=== PATIENT | male | born 1960 | race Caucasian/White ===

== ENCOUNTER 2022-03-04 10:01 | Inpatient (IN) | payer OTHER ==
[~2022-03-04] VITALS: Ht 185.4 cm; Wt 111.0 kg
[2022-03-04 11:39] LABS: BASOPHIL 0.7 % (0-2); EOSINOPHIL 1.5 % (0-5); HGB 14.7 g/dl (13.2-18.0); LYMPHOCYTE 15.2 % (15-48); MCH 30.2 pg (25.0-31.0); MCHC 33.4 g/dL (32.0-36.0); MCV 90.5 fL (78.0-100.0); NEUTROPHIL 67.9 % (41-80); NRBC 0; PLT 361 K/uL (150-400); RBC 4.86 M/uL (4.70-6.00); RDW 12.8 % (11.5-14.0); WBC 13.2 K/uL (4.0-10.5)
[2022-03-04 11:43] LABS: INR 1.26 (0.9-1.2); PROTHROMBIN TIME 15.1 SECONDS (11.8-13.4); PTT 36.7 SECONDS (24.4-34.7)
[2022-03-04 11:44] LABS: D-DIMER 0.54 ug/mLFEU (0.00-0.41)
[2022-03-04 11:51] LABS: ALBUMIN 3.1 g/dL (3.4-5.0); BILIRUBIN - TOTAL 1.5 mg/dL (0.2-1.0); BUN/CREAT RATIO (CALC) 14.9 RATIO; CREATININE 0.94 mg/dL (0.67-1.17); GLOBULIN (CALCULATION) 4.4 g/dL; MAGNESIUM 1.9 mg/dL (1.8-2.4); TOTAL PROTEIN 7.5 g/dL (6.4-8.2)
[2022-03-04 11:54] LABS: BILIRUBIN 1+ mg/dL (NEGATIVE); BLOOD TRACE-INTACT Ery/uL (NEGATIVE); CLARITY CLEAR (CLEAR); COLOR YELLOW (YELLOW); GLUCOSE (U) NORMAL (NORMAL); LEUKOCYTES NEGATIVE Leu/uL (NEGATIVE); NITRITE NEGATIVE (NEGATIVE); PROTEIN NEGATIVE (NEGATIVE); SPECIFIC GRAVITY 1.025 (1.001-1.030)
[2022-03-04 12:08] LABS: BACTERIA TRACE; URINARY RBC RARE; URINARY WBC RARE
[2022-03-04 17:09] LABS: CHOLESTEROL 156 mg/dL (<200); HDL 41 mg/dL (40-60); LACTIC ACID 1.5 mmol/L (0.4-1.9); LDL - DIRECT 94 mg/dL (<100); TRIGLYCERIDES 73 mg/dL (<150)
[2022-03-05 06:10] LABS: BASOPHIL 0.8 % (0-2); EOSINOPHIL 3.3 % (0-5); HCT 43.8 % (42.0-52.0); HGB 14.5 g/dl (13.2-18.0); LYMPHOCYTE 15.6 % (15-48); MCH 30.2 pg (25.0-31.0); MCHC 33.1 g/dL (32.0-36.0); MCV 91.3 fL (78.0-100.0); MONOCYTE 13.7 % (0-12); NRBC 0; PLT 358 K/uL (150-400); RDW 12.9 % (11.5-14.0); WBC 14.3 K/uL (4.0-10.5)
[2022-03-05 06:38] LABS: ALBUMIN 2.9 g/dL (3.4-5.0); BILIRUBIN - DIRECT 0.3 mg/dL (0.00-0.20); BILIRUBIN - TOTAL 1.2 mg/dL (0.2-1.0); BUN/CREAT RATIO (CALC) 16.7 RATIO; CREATININE 1.02 mg/dL (0.67-1.17); GLOBULIN (CALCULATION) 4.2 g/dL; POTASSIUM 4.5 mmol/L (3.5-5.1); TOTAL PROTEIN 7.1 g/dL (6.4-8.2)
[2022-03-05 09:01] LABS: FT4 (FREE T4) 1.3 ng/dL (0.76-1.46)
[2022-03-06 05:48] LABS: BASOPHIL 0.8 % (0-2); EOSINOPHIL 3.3 % (0-5); HCT 41.4 % (42.0-52.0); HGB 13.7 g/dl (13.2-18.0); LYMPHOCYTE 19.4 % (15-48); MCHC 33.1 g/dL (32.0-36.0); MCV 90.8 fL (78.0-100.0); MONOCYTE 13.8 % (0-12); MPV 8.9 fL (6.0-9.5); NEUTROPHIL 61.7 % (41-80); NRBC 0; PLT 367 K/uL (150-400); RBC 4.56 M/uL (4.70-6.00); RDW 12.9 % (11.5-14.0); WBC 12.8 K/uL (4.0-10.5)
[2022-03-06 06:14] LABS: ALBUMIN 2.7 g/dL (3.4-5.0); BILIRUBIN - DIRECT 0.3 mg/dL (0.00-0.20); GLOBULIN (CALCULATION) 4.2 g/dL; POTASSIUM 4.1 mmol/L (3.5-5.1); TOTAL PROTEIN 6.9 g/dL (6.4-8.2)
[2022-03-06 17:00] LABS: BILIRUBIN 1+ mg/dL (NEGATIVE); BLOOD 1+ Ery/uL (NEGATIVE); COLOR YELLOW (YELLOW); GLUCOSE (U) TRACE mg/dL (NORMAL); LEUKOCYTES NEGATIVE Leu/uL (NEGATIVE); NITRITE POSITIVE (NEGATIVE); PROTEIN TRACE (LOW) mg/dL (NEGATIVE); SPECIFIC GRAVITY >=1.030 (1.001-1.030)
[2022-03-06 17:33] LABS: CLARITY CLOUDY (CLEAR)
[2022-03-06 17:34] LABS: AMORPHOUS URATES CRYSTALS LARGE; URINARY RBC RARE
[2022-03-07 03:21] LABS: BASOPHIL 0.6 % (0-2); EOSINOPHIL 3.5 % (0-5); HCT 41.5 % (42.0-52.0); HGB 13.9 g/dl (13.2-18.0); LYMPHOCYTE 15.7 % (15-48); MCH 30.2 pg (25.0-31.0); MCHC 33.5 g/dL (32.0-36.0); MONOCYTE 13.7 % (0-12); MPV 8.8 fL (6.0-9.5); NEUTROPHIL 65.8 % (41-80); NRBC 0; PLT 360 K/uL (150-400); RBC 4.61 M/uL (4.70-6.00); RDW 12.8 % (11.5-14.0); WBC 13.6 K/uL (4.0-10.5)
[2022-03-07 03:31] LABS: INR 1.5 (0.9-1.2); PROTHROMBIN TIME 17.4 SECONDS (11.8-13.4)
[2022-03-07 03:40] LABS: BUN/CREAT RATIO (CALC) 18.6 RATIO; CREATININE 0.86 mg/dL (0.67-1.17); POTASSIUM 4.5 mmol/L (3.5-5.1)
[2022-03-07] MEDS ORDERED: AUGMENTIN 500-1 EACH PO (08:44)
[2022-03-07] MEDS ORDERED: NORCO 5-325 TA1 EACH PO (08:44)
[2022-03-07] MEDS ORDERED: AMIODARONE HCL200 MG PO (08:44)
[2022-03-07] MEDS ORDERED: NAPROSYN250 MG PO (08:44)
[2022-03-07] MEDS ORDERED: METRONIDAZOLE500 MG PO (08:44)
--- NOTE | 2022-03-07 09:55 | NUR ---
03/07 Mr. Keen lives alone. He is independent and continues to work. He will be discharging to the home of his girlfriend, Jaquelin Christensen, [address] [place] [address] Jorge Merino Moody. - A referral was made to [facility] per pt request.
[2022-03-07 12:30] LABS: ALBUMIN 2.4 g/dL (3.4-5.0); BILIRUBIN - DIRECT 0.2 mg/dL (0.00-0.20); BILIRUBIN - TOTAL 0.6 mg/dL (0.2-1.0); GLOBULIN (CALCULATION) 4.2 g/dL; TOTAL PROTEIN 6.6 g/dL (6.4-8.2)
[2022-03-07 15:21] LABS: RBC (FLUID) 207000 RBC/uL; WBC (FLUID) 3854 WBC/uL
[2022-03-07 15:26] LABS: CLARITY (FLUID) CLOUDY; COLOR (FLUID) RED
[2022-03-08 08:39] LABS: BASOPHIL 0.7 % (0-2); EOSINOPHIL 5.2 % (0-5); HCT 44.3 % (42.0-52.0); HGB 14.5 g/dl (13.2-18.0); LYMPHOCYTE 12.9 % (15-48); MCHC 32.7 g/dL (32.0-36.0); MCV 91.7 fL (78.0-100.0); MONOCYTE 12.1 % (0-12); MPV 8.9 fL (6.0-9.5); NEUTROPHIL 68.4 % (41-80); NRBC 0; PLT 387 K/uL (150-400); RBC 4.83 M/uL (4.70-6.00); RDW 12.8 % (11.5-14.0); WBC 13.2 K/uL (4.0-10.5)
[2022-03-08 08:58] LABS: BUN/CREAT RATIO (CALC) 20.5 RATIO; CREATININE 0.88 mg/dL (0.67-1.17); POTASSIUM 3.9 mmol/L (3.5-5.1)
--- NOTE | 2022-03-08 15:37 | NUR ---
03/08/22 A referral was made to [facility], for PCP.
--- NOTE | 2022-03-10 13:46 | NUR ---
1325RETURNED FROM SURGERY VIA BED. PLEUR X KIT WITH PATIENT. REATTACHED TO MONITORS. NO DRAINAGE ON DRESSINGS.
--- NOTE | 2022-03-10 14:23 | NUR ---
03/10/22 A referral was received for nursing through . [facility] and [facility] declined to accept patient. [facility] agreed to accept. However, they are out of network. Pt would be responsible for the first $4000. and then the plan would pay at 70%. This information was relayed to Mr. Keen and and family. They did not accept [facility] stating they have several nurses in the home to care for the pleurex drain. - Report given to ISABELLE Swanson RN.
--- NOTE | 2022-03-10 18:31 | NUR ---
1800 DETAILED INSTRUCTIONS GIVEN TO PATIENT CONCERNING PLEUR X. PLEUR X KIT GIVEN TO PATIENT WITH INSTRUCTIONS, ACCESS TO [employer] AND VIDEO. DAUGHTER IS A NURSE AND WILL HELP UNTIL SHE LEAVES TOMORROW. FRIEND MAIKEL IS A NURSE AND WILL HELP AFTER THAT. INSTRUCTED TO DRAIN ONE BOTTLE EVERY DAY. ISNTRUCTED TO RETURN TO ER IF ANY PROBLEMS ARISE. PHONE NUMBERS AND ADDRESSES GIVEN FOR STEFANO MCCLAIN, DR. ARELLANO, TANIA QUIGLEY, DR SAUCEDA AND CHARLI. DR. GONZALEZ OFFICE TO HAVE SUPPLIES SENT TO PATIENT HOME. WILL VERIFY ADDRESS TOMORROW. FAMILY AND PATIENT VERIFIED UNDERSTANDING. MIDLINE DCD, MONITOR DCD. DRESSING CLEAN DRY AND INTACT TO PLEUR X SITE. PATIENT DECLINED HOME HEALTH SERVICES DUE TO COST.
== END 2022-03-10 18:00 | disposition home or self-care (01) | DRG 871 ==
LOC: FER 10:01 → FTCU 14:50
PROVIDERS: Emergency Medicine; Internal Medicine Cardiovascular Disease; Student in an Organized Health Care Education/Training Program; ADMIT Family Medicine
PROC: 3E03329 Introduction of Other Anti-infective into Peripheral Vein, Percutaneous Approach (ICD-10-PCS; 2022-03-04)
PROC: B24BZZZ Ultrasonography of Heart with Aorta (ICD-10-PCS; 2022-03-05)
PROC: 05HY33Z Insertion of Infusion Device into Upper Vein, Percutaneous Approach (ICD-10-PCS; 2022-03-06)
PROC: 0W993ZZ Drainage of Right Pleural Cavity, Percutaneous Approach (ICD-10-PCS; 2022-03-07)
PROC: 0W9930Z Drainage of Right Pleural Cavity with Drainage Device, Percutaneous Approach (ICD-10-PCS; principal; 2022-03-10 12:00)
DX: A41.9 Sepsis, unspecified organism (principal); J96.01 Acute respiratory failure with hypoxia; J18.9 Pneumonia, unspecified organism; C34.91 Malignant neoplasm of unspecified part of right bronchus or lung; J91.0 Malignant pleural effusion; N17.9 Acute kidney failure, unspecified; Z20.822 Contact with and (suspected) exposure to COVID-19; Z28.310 Unvaccinated for COVID-19; R65.20 Severe sepsis without septic shock; I48.91 Unspecified atrial fibrillation; R73.9 Hyperglycemia, unspecified; N18.2 Chronic kidney disease, stage 2 (mild); F17.200 Nicotine dependence, unspecified, uncomplicated; R79.89 Other specified abnormal findings of blood chemistry; E80.6 Other disorders of bilirubin metabolism; K59.03 Drug induced constipation; Z79.899 Other long term (current) drug therapy
CPT/HCPCS: 36415; 36600; 71045; 71046; 71260; 71275; 80048; 80053; 80061; 80076; 81001; 82803; 82945; 83036; 83605; 83615; 83735; 83880; 84145; 84157; 84439; 84443; 84484; 85025; 85379; 85610; 85730; 87040; 87070; 87205; 89051; 93005; 93971; 94010; 94640; C1751; J0282; J0456; J0696; J1644; J1650; J1885; J1940; J2250; J7050; J7060; J7120; Q9967; U0002

== ENCOUNTER → 2022-04-06 | Day surgery (SDC) | payer OTHER ==
[~2022-04-06] VITALS: Ht 185.4 cm; Wt 113.7 kg
[~2022-04-06] MED LIST: AMIODARONE HCL200 MG PO; ASPIRIN EC81 MG PO; AUGMENTIN 500-1 EACH PO; FOLIC ACID1 MG PO; MEDROL4 MG PO; METRONIDAZOLE500 MG PO; NAPROSYN250 MG PO; NORCO 5-325 TA1 EACH PO; ULTRAM50 MG PO
== END | disposition home or self-care (01) ==
LOC: FAS 07:00
DX: C34.90 Malignant neoplasm of unspecified part of unspecified bronchus or lung (principal); J91.0 Malignant pleural effusion; C79.9 Secondary malignant neoplasm of unspecified site; I48.91 Unspecified atrial fibrillation; Z99.81 Dependence on supplemental oxygen; Z79.82 Long term (current) use of aspirin; Z79.899 Other long term (current) drug therapy
CPT/HCPCS: 71045; 76000; C1788; J0690; J1644; J2001; J2250; J7120